=== PATIENT | female | born 1955 | race Caucasian/White ===

== ENCOUNTER → 2018-12-04 11:17 | Outpatient (CLI) | payer MEDICARE, SELFPAY ==
[2018-12-04 12:50] LABS: Vitamin B12 548 pg/mL (211-911)
[2018-12-04 12:59] LABS: Thyroid Stim Hormone (TSH) 1.26 uIU/mL (0.358-3.74)
== END ==
PROVIDERS: Family Provider Family Medicine; PCP Family Medicine; Referring Provider Psychiatry & Neurology Neurology; Visit Provider Psychiatry & Neurology Neurology
DX: R41.3 Other amnesia (principal)
CPT/HCPCS: 36415; 82607; 84443

== ENCOUNTER → 2018-12-13 15:56 | Outpatient (CLI) | payer MEDICARE, MEDICAID, SELFPAY ==
--- NOTE | 2018-12-13 16:10 | MRI_ITS ---
STUDY: MRI BRAIN WITHOUT CONTRAST REASON FOR EXAM: Female, 63 years old. Dementia and memory loss for 3 months TECHNIQUE: Standardized multiplanar fat and water weighted pulse sequences were obtained. COMPARISON: None. FINDINGS: Normal size of the ventricles and extra-axial spaces for the patient's age. Normal white matter tracts of the supratentorial brain. Normal bilateral basal ganglia. Normal thalami. There is no extra-axial fluid accumulation. Normal flow voids within the major intracranial circulation suggesting patency by spin echo criteria. Normal sella turcica, pituitary gland, infundibular stalk, optic chiasm and hypothalamus. Normal tectal plate and pineal gland. Normal midbrain, dunia and medulla. Normal cerebellum. Normal basal cisterns. Normal bilateral temporal bones. Normal bilateral internal auditory canals. No demonstrated orbital abnormality, within the constraints of a routine brain study. Normal visualized paranasal sinuses. Normal calvarium and skull base. Normal visualized soft tissue structures. Normal visualized upper cervical spine. MRI/Brain without Contrast IMPRESSION: No evidence of acute infarct or hemorrhage. No brain abnormalities are identified. Electronically Signed: Jeremy Fish MD at 19:10 EDT Tel , Service support ,
== END ==
PROVIDERS: Family Provider Family Medicine; PCP Family Medicine; Referring Provider Psychiatry & Neurology Neurology; Visit Provider Psychiatry & Neurology Neurology
DX: R41.3 Other amnesia (principal); F03.90 Unspecified dementia, unspecified severity, without behavioral disturbance, psychotic disturbance, mood disturbance, and anxiety; Z80.0 Family history of malignant neoplasm of digestive organs
CPT/HCPCS: 70551

== ENCOUNTER → 2018-12-23 09:52 | Outpatient (CLI) | payer MEDICARE, SELFPAY ==
--- NOTE | 2018-12-23 10:30 | PET_ITS ---
EXAMINATION: FDG PET-CT BRAIN INDICATIONS: A 63-year-old female with reported history of cognitive impairment, memory loss. COMPARISON EXAMINATION: MRI of the brain report dated 12/13/18. TECHNIQUE: Following the intravenous administration of 12.43 mCi of F-18 deoxyglucose via the left antecubital fossa, multiplanar image acquisitions of the brain obtained at 60 minutes post radiopharmaceutical administration reveal: SERUM GLUCOSE LEVEL: 110 mg/dl. HEIGHT: 62 inches. WEIGHT: 220 lbs FINDINGS: 1. Qualitative, visual analysis demonstrates relatively symmetric and preserved FDG distribution noted in the cerebral cortical and subcortical structures to include the bilateral frontal, temporal, occipital and parietal lobes, as well as basal ganglia, cerebellar hemispheres. 2. Quantitative analysis utilizing [employer] software demonstrates altered glucose concentration observed in the bilateral parietal lobes to include the superior and inferior bilateral parietal cortex with a maximum altered Z-score of -3.00 involving the left superior parietal cortex and -2.62 involving the left inferior parietal cortex, as well as right and left temporal lobes with maximum Z-scores of -2.68 involving the right superior temporal cortex, -1.98 involving the right mid temporal cortex and - 2.86 involving the right inferior temporal cortex. PET/PET Brain Metabolic Eval IMPRESSION: 1. 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 (Tristan and Yasmeen, Molecular Imaging and Biology 4:239, 2004). Electronic Signature Nico Almanza D.O. Electronically Signed: Nico Almanza DO at 23:37 EDT Tel , Service support ,
== END ==
PROVIDERS: Family Provider Family Medicine; PCP Family Medicine; Referring Provider Psychiatry & Neurology Neurology; Visit Provider Psychiatry & Neurology Neurology
DX: R41.3 Other amnesia (principal); F03.90 Unspecified dementia, unspecified severity, without behavioral disturbance, psychotic disturbance, mood disturbance, and anxiety; Z80.9 Family history of malignant neoplasm, unspecified
CPT/HCPCS: 78608; A9552